=== PATIENT | female | born 1960 | race Hispanic/Latino ===

== ENCOUNTER 2017-02-14 10:51 | Emergency (ER) | payer OTHER ==
[~2017-02-14] VITALS: Ht 152.4 cm; Wt 71.4 kg
[2017-02-14] MEDS ORDERED: MORPHINE SULFAT15 M1 PO (11:34)
[2017-02-14] MEDS ORDERED: OXYCODONE HCL10 MG PO (11:34)
[2017-02-14] MEDS ORDERED: MOTRIN400 MG PO (11:35)
[2017-02-14] MEDS ORDERED: PEN-VEE K,VEET500 MG PO (12:25)
[2017-02-14 12:42] VITALS: BP 155/99
== END 2017-02-14 12:44 | disposition home or self-care (01) ==
LOC: EME 10:51
PROC: 3E0T3BZ Introduction of Anesthetic Agent into Peripheral Nerves and Plexi, Percutaneous Approach (ICD-10-PCS; principal; 2017-02-14)
DX: K08.89 Other specified disorders of teeth and supporting structures (principal); I10 Essential (primary) hypertension